=== PATIENT | female | born 1960 | race Caucasian/White ===

== ENCOUNTER → 2023-11-09 09:02 | Outpatient (REF) | payer OTHER, SELFPAY | LOC: HWRAD 09:02 | PROVIDERS: ATTENDING PHYSICIAN Family Medicine | DX: Z13.820 Encounter for screening for osteoporosis (principal) | CPT/HCPCS: 77080 ==

== ENCOUNTER 2023-12-23 07:20 | Day surgery (SDC) | payer OTHER, SELFPAY ==
[2023-12-23] VITALS (12 sets, daily range): BP systolic 110–147; BP diastolic 57–103; BMI 35.9
--- NOTE | 2023-12-23 03:28 | ED.GENMED ---
History of Present Illness
<VERNELL Esteves - Last Filed: 12/23/23 03:49>
General
Chief Complaint: Abdominal Pain
Source: patient and spouse
Exam Limitations: none
Time Seen by Provider: 12/23/23 03:09
History of Present Illness
History of Present Illness:
Pt is a 63 y/o F with complaints of RLQ pain x3 hrs ago that woke her up from sleep. The patient reported that she had complaints of epigastric pain that radiated to her RLQ. She described the pain as a burning sensation and rated the severity a
6/10. The RLQ pain also radiates to her back and right sided pelvis. She took an Ibuprofen with some relief. The RLQ pain is worsened with walking. There is associated nausea and increased urinary frequency. She also reports complaints of chills but
relates it to anxiety. She denies diarrhea, constipation, fever, vomiting, shortness of breath, SALDANA.
The pt has a PMHx of HTN x12 years on Lisinopril, HLD x12 years on Rosuvastatin and Fenofibrate, and GERD x1 yr on Pantoprazole. The pt is also taking Fosamax, Mounjaro, and Ozempic.
Past History
<VERNELL Esteves - Last Filed: 12/23/23 03:49>
Past History
ED Past Medical History: GERD, HTN and Hypercholesterolemia
ED Past Surgical History: None
Social History
Tobacco: Non-smoker
Alcohol: None
Drug: None
Personal:
Living: with family
Employment: Employed
Review of Systems
<VERNELL Esteves - Last Filed: 12/23/23 03:49>
Review of Systems
Allergies reviewed?: Yes
Constitutional: Reports no symptoms
EENT: Reports no symptoms
Respiratory: Reports no symptoms
Cardiac: Reports no symptoms
ABD/GI: Reports abdominal pain and nausea
: Reports frequency
Musculoskeletal: Reports no symptoms
Skin: Reports no symptoms
Neurological: Reports no symptoms
Endocrine: Reports no symptoms
Hematologic/Lymphatic: Reports no symptoms
Psychiatric: Reports no symptoms
Phy Exam
<VERNELL sEteves - Last Filed: 12/23/23 03:49>
General Physical Exam
General Presentation: well appearing and no apparent distress
General age: appears stated age
General Skin: warm and dry
General Habitus: normal
General Mental: alert
General Hydration: appears well hydrated
ENT Exam
ENT Exam: neck supple
Eye Exam
Eye Exam: PERRL, cornea clear and conjunctiva normal
Cardiovascular Exam
Cardiovascular Exam: regular rate/rhythm and normal peripheral pulses
Pulmonary Exam
Pulmonary Exam: lungs clear and no respiratory distress
Gastrointestinal Exam
Gastrointestinal Exam: normal bowel sounds, soft, no bruit and tender
Palpation: right lower quadrant: Moderate tenderness (Positive Rovsing's sign, positive Obturator sign)
Auscultation of Abdomen: normal
Neurological Exam
Neurological Exam: alert, oriented x3, no motor deficits, no sensory deficits and speech normal
Course
<VERNELL Esteves - Last Filed: 12/23/23 03:49>
Orders/Labs/Results
Orders:
Orders
12/23/23 03:30
CT Abd/Pel (IV only)-DH only Urgent
Comment:
Reason For Exam: rlq abd pain
12/23/23 03:53
Complete Blood Count/With Diff Urgent
Comprehensive Metabolic Panel Urgent
Lipase Urgent
PTT Urgent
Prothrombin Time Urgent
Troponin I Urgent
Urinalysis Reflex To Culture Urgent
Date Specimen was Collected: 12/23/23
Time Specimen was Collected: 03:46
Urine Microscopic Reflex Cult Urgent
Urine Culture Urgent
ISRRAEL Source: U
Specimen Description:
Date Specimen was Collected: 12/23/23
Time Specimen was Collected: 03:46
12/23/23 Breakfast
NPO
Allow oral meds: No
Allow clear liquids: Sips of Clears
12/23/23 06:14
Piperacillin/Tazo 4.5 Gram [Zosyn] 4.5 gram in 100 ml IV NOW
Abnormal Lab Results
12/23/23
03:53
WBC 13.2 H 10^3/uL
(4.8-10.8)
MCV 79.0 L fL
(81.0-99.0)
MPV 10.6 H fL
(7.4-10.4)
Absolute Neuts (auto) 10.2 H 10^3/uL
(1.4-6.5)
Absolute Monos (auto) 1.0 H 10^3/uL
(0.1-0.6)
Neutrophils % 77.4 H %
(42.2-75.2)
Lymphocytes % 13.2 L %
(20.5-51.1)
Chloride 109 H mmol/L
(98-107)
Carbon Dioxide 20 L mmol/L
(22-30)
BUN 18 H mg/dl
(7-17)
Glucose 104 H mg/dl
(70-99)
Leukocyte Esterase Rfl 1+ A
(Negative)
Urine WBC (Reflex) 11-15 A /HPF
(0-5)
Urine Bacteria (Reflex) Many A
(Negative)
12/23/23 03:53
12/23/23 03:53
Vital Signs
Initial and Last Documented VS:
Initial Vital Signs
Temp Pulse Resp BP Pulse Ox
98.4 F 88 18 144/103 97
12/23/23 03:00 12/23/23 03:00 12/23/23 03:00 12/23/23 03:00 12/23/23 03:00
Last Documented Vital Signs
Temp Pulse Resp BP Pulse Ox
98.4 F 74 20 115/65 99
12/23/23 03:00 12/23/23 05:15 12/23/23 05:15 12/23/23 04:00 12/23/23 05:02
<Isacc Junior, - Last Filed: 12/23/23 06:15>
Orders/Labs/Results
Orders:
Orders
12/23/23 03:30
CT Abd/Pel (IV only)-DH only Urgent
Comment:
Reason For Exam: rlq abd pain
12/23/23 03:53
Complete Blood Count/With Diff Urgent
Comprehensive Metabolic Panel Urgent
Lipase Urgent
PTT Urgent
Prothrombin Time Urgent
Troponin I Urgent
Urinalysis Reflex To Culture Urgent
Date Specimen was Collected: 12/23/23
Time Specimen was Collected: 03:46
Urine Microscopic Reflex Cult Urgent
Urine Culture Urgent
ISRRAEL Source: U
Specimen Description:
Date Specimen was Collected: 12/23/23
Time Specimen was Collected: 03:46
12/23/23 Breakfast
NPO
Allow oral meds: No
Allow clear liquids: Sips of Clears
12/23/23 06:14
Piperacillin/Tazo 4.5 Gram [Zosyn] 4.5 gram in 100 ml IV NOW
Abnormal Lab Results
12/23/23
03:53
WBC 13.2 H 10^3/uL
(4.8-10.8)
MCV 79.0 L fL
(81.0-99.0)
MPV 10.6 H fL
(7.4-10.4)
Absolute Neuts (auto) 10.2 H 10^3/uL
(1.4-6.5)
Absolute Monos (auto) 1.0 H 10^3/uL
(0.1-0.6)
Neutrophils % 77.4 H %
(42.2-75.2)
Lymphocytes % 13.2 L %
(20.5-51.1)
Chloride 109 H mmol/L
(98-107)
Carbon Dioxide 20 L mmol/L
(22-30)
BUN 18 H mg/dl
(7-17)
Glucose 104 H mg/dl
(70-99)
Leukocyte Esterase Rfl 1+ A
(Negative)
Urine WBC (Reflex) 11-15 A /HPF
(0-5)
Urine Bacteria (Reflex) Many A
(Negative)
12/23/23 03:53
12/23/23 03:53
Vital Signs
Initial and Last Documented VS:
Initial Vital Signs
Temp Pulse Resp BP Pulse Ox
98.4 F 88 18 144/103 97
12/23/23 03:00 12/23/23 03:00 12/23/23 03:00 12/23/23 03:00 12/23/23 03:00
Last Documented Vital Signs
Temp Pulse Resp BP Pulse Ox
98.4 F 74 20 115/65 99
12/23/23 03:00 12/23/23 05:15 12/23/23 05:15 12/23/23 04:00 12/23/23 05:02
<VERNELL Esteves - Last Filed: 12/23/23 03:49>
MDM/Problems Addressed
Differential Diagnosis Includes:
Appendicitis
<VERNELL Esteves - Last Filed: 12/23/23 03:49>
*Critical Care Note
Total Time (30-74mins, 75-104mins- exclusive of procedures): Not Applicable
<Isacc Junior DO - Last Filed: 12/23/23 06:15>
Update Note
Update Note:
Additional Information (per [facility]):
CT abdomen and pelvis with IV contrast
IMPRESSION:
Acute appendicitis without perforation. Surgical consultation is recommended.
Appendix located in the right lower quadrant, series 201, image 61 for example. Diameter 8 mm. No fluid collection or free air.
Hepatic steatosis. No cholecystitis or pancreatitis. No obstructing renal stone. Abdominal aorta is of normal caliber. Bladder wall thickening; correlate with urinalysis.
Finalized at 5:23 AM EST
Spoke with Dr. Quevedo who agreed to accept patient on his service. That he would, nurse practitioner aware. Patient started on Zosyn and made NPO.
ED Attending Note
<VERNELL Esteves - Last Filed: 12/23/23 03:49>
-
Portions of this chart may have been created with voice recognition software.� Occasional wrong word or��sound alike� substitutions may have occurred due to the inherent limitations of voice recognition software.
<Isacc Junior DO - Last Filed: 12/23/23 06:15>
ED Attending Note
Patient seen and examined by attending physician: Yes
I performed the substantive portion of visit, reviewed & personally made and approve the management plan that is documented in note by myself or NIDIA.: Yes
ED Attending Note:
Pleasant 63-year-old female presents with right lower quadrant abdominal pain that began approxi-3 hours prior to arrival. She states that the pain awakened her from sleep patient states that she took ibuprofen with minimal relief. Patient states
that jarring motion exacerbates her right lower quadrant abdominal pain. She does have nausea without vomiting patient states that the pain begins in her right lower quadrant and radiates down to her right pelvis and back. Patient was seen in
conjunction with the PA student. I have reviewed and agree with the history and treatment plan presented. On my independent physical exam, patient is awake, alert, and oriented x3
Discharge Plan
Departure
Patient Disposition: Admit
Date of Disposition: 12/23/23
Time of Disposition: 06:03
Admit to: Med/Surg
Presentation/result/management discussed w/ accepting /DO: Sae
Condition: Fair
Discharge Problem:
Acute appendicitis
Prescriptions:
No Action
ondansetron [Zofran ODT] 8 MG tablet,disintegrating
8 mg PO TID PRN (Reason: nausea/vomiting) Qty: 20 0RF
meclizine 25 MG tablet
25 mg PO Q8HPRN PRN (Reason: vertigo) Qty: 30 0RF
Referrals:
Theodore Uriarte DO [Family Provider] -
Interventions
Interventions:
*Risk Screen - Suicide Last Done: 12/23/23 03:00
*General Assessment Last Done: 12/23/23 03:00
*Neglect/Abuse Screening Last Done: 12/23/23 03:00
ED- Fall Risk Assessment Last Done: 12/23/23 03:00
*ED COVID-19 Vaccine History Last Done: 12/23/23 03:00
TN-Gbpngz-Iptejasgis Assessment Last Done: 12/23/23 03:40
Discharge Date and Time
Print Language: TRISTANIAN
[2023-12-23 04:11] LABS: % Basophils 0.6 % (0-2); % Eosinophils 1.1 % (0-6); % Immature Granulocytes 0.3 % (0-0.5); % Lymphocytes 13.2 % (20.5-51.1); % Monocytes 7.4 % (1.7-9.3); % Neutrophils 77.4 % (42.2-75.2); Absolute Basophils 0.1 10^3/uL (0-0.2); Absolute Eosinophils 0.2 10^3/uL (0-0.7); Absolute Lymphocytes 1.7 10^3/uL (1.2-3.4); Absolute Neutrophils 10.2 10^3/uL (1.4-6.5); Hematocrit 37.3 % (37.0-47.0); Hemoglobin 12.9 g/dL (12.0-16.0); Mean Corp Hgb Conc. 34.6 g/dL (33.0-37.0); Mean Corpuscular Hgb 27.3 pg (27.0-31.0); Mean Platelet Volume 10.6 fL (7.4-10.4); Nucleated Red Blood Cells % 0 %; Platelet Count 223 10^3/uL (130-400); Red Blood Cell Count 4.72 10^6/uL (4.20-5.40); Red Cell Dist. Width 13.8 % (11.5-14.5); White Blood Cell Count 13.2 10^3/uL (4.8-10.8)
[2023-12-23 04:15] LABS: Urine Albumin Negative (Neg - Trace); Urine Bilirubin Negative (Negative); Urine Character Clear (Clear); Urine Color Yellow; Urine Glucose Negative (Negative); Urine Ketone Negative (Negative); Urine Leukocyte 1+ (Negative); Urine Nitrite Negative (Negative); Urine Occult Blood Negative (Negative); Urine Urobilinogen Negative (Neg - 1+)
[2023-12-23 04:19] LABS: INR 1.02; PT 13.4 Sec (11.4-14.6)
[2023-12-23 04:20] LABS: APTT 31.8 Sec (23.4-35.0)
[2023-12-23 04:33] LABS: ALT (SGPT) 33 U/L (0-35); AST (SGOT) 31 U/L (14-36); Albumin 4.3 g/dl (3.5-5.0); Alkaline Phosphatase 72 U/L (38-126); Blood Urea Nitrogen 18 mg/dl (7-17); Calcium 9.6 mg/dl (8.4-10.2); Carbon Dioxide 20 mmol/L (22-30); Chloride 109 mmol/L (98-107); Estimated Creatinine Clearance 93 ml/min; Glucose 104 mg/dl (70-99); Lipase 163 U/L (23-300); Potassium 3.9 mmol/L (3.5-5.1); Sodium 142 mmol/L (135-145); Total Bilirubin 1.1 mg/dl (0.2-1.3); Total Protein 6.5 g/dl (6.3-8.2); eGFR > 60.00
[2023-12-23 04:43] LABS: Troponin I < 0.012 ng/ml
[2023-12-23 05:03] LABS: Urine Squamous Cell >30 /LPF (Few); Urine Urothelial Cell >30 /LPF (FEW)
[2023-12-23 05:09] LABS: Urine Bacteria Many (Negative)
[2023-12-23 05:10] LABS: Urine Red Blood Cell 0-2 /HPF (0-2)
[2023-12-23] MEDS: ZOSYN 100 IV (06:49)
--- NOTE | 2023-12-23 07:05 | HPS.HSE ---
Family Physician
-
Family Physician: Theodore Uriarte,
Chief Complaint
-
abd pain
History of Present Illness
Pt is a 63 y/o F with complaints of RLQ pain that woke her up from sleep around midnight. The patient reported that she had complaints of epigastric pain that radiated to her RLQ. She described the pain as a burning sensation and rated the severity
a 6/10. The RLQ pain also radiates to her back and right sided pelvis. She took an Ibuprofen with some relief. The RLQ pain is worsened with walking. There is associated nausea and increased urinary frequency. She also reports complaints of chills
but relates it to anxiety. She denies diarrhea, constipation, fever, vomiting, shortness of breath, SALDANA.
The pt has a PMHx of HTN x12 years on Lisinopril, HLD x12 years on Rosuvastatin and Fenofibrate, and GERD x1 yr on Pantoprazole. The pt is also taking Fosamax, Mounjaro (for weight loss)
ED treatments:
zosyn iv
WBC 13.2
[address] abd consistent with acute appendicitis
Medical History
Past Medical History
Past Medical History: Reports GERD, HTN, Hypercholesterolemia (and high triglycerides) and Other (osteoporosis)
Past Surgical History: Reports Other (wisdom teeth, tonsils as child)
Social History
Tobacco: Non-smoker
Alcohol: None
Drug: None
Personal:
Living: With Family
Family History
Family History: Not pertinent
Allergies / Home Medications
Allergies reflects when Allergies were last updated in [facility].
Home Medications with original date entered in [facility]
Allergy/Medication List:
Allergies
Allergy/AdvReac Type Severity Reaction Status Date / Time
No Known Allergies Allergy Verified 12/23/23 02:58
Home Medications
Fosamax 70 mg PO WEEKLY 12/23/23
Mounjaro 5 mg SC WEEKLY 12/23/23
fenofibrate 48 mg PO DAILY 12/23/23
lisinopril 10 mg tablet 10 mg PO DAILY 12/23/23
pantoprazole 40 mg tablet,delayed release 40 mg PO DAILY 12/23/23
rosuvastatin 10 mg tablet 10 mg PO DAILY 12/23/23
Review of Systems
-
History Source: Patient
A 12 point ROS was completed and negative except as noted: Yes
Constitutional: Reports No Symptoms
EENT: Reports No Symptoms
Respiratory: Reports No Symptoms
Cardiac: Reports No Symptoms
Abdomen/GI: Reports Abdominal Pain (09/18) and Nausea
: Reports No Symptoms
Musculoskeletal: Reports No Symptoms
Skin: Reports No Symptoms
Neurological: Reports No Symptoms
Endocrine: Reports No Symptoms
Hematologic/Lymphatic: Reports No Symptoms
Psych: Reports No Symptoms
Physical Exam
Vital Signs
Vital Signs
Temp Pulse Resp BP Pulse Ox
98.4 F 75 15 115/65 95
12/23/23 03:00 12/23/23 06:45 12/23/23 06:45 12/23/23 04:00 12/23/23 06:45
Physical Exam
General: Well Developed, No Apparent Distress and Comfortable
HEENT: NormoCephalic, Anicteric and Moist mucous membranes
Respiratory: Clear and Non Labored Respirations
Cardiac: S1/S2 and Regular Rhythm
Breast: Deferred by me
GI: Soft, Tender (RLQ ) and Distended (mild)
Rectal: Deferred by Provider
Genito-urinary: Deferred by me
Musculoskeletal: No Clubbing and No Cyanosis
Skin: Warm and Dry
Neuro: Awake, Alert, Oriented, AO x 3 and No Motor Deficits
Psych: Calm
Laboratory Results
-
12/23/23 03:53
12/23/23 03:53
Laboratory Results
PT 13.4 Sec (11.4-14.6) 12/23/23 03:53
INR 1.02 12/23/23 03:53
APTT 31.8 Sec (23.4-35.0) 12/23/23 03:53
Total Bilirubin 1.1 mg/dl (0.2-1.3) 12/23/23 03:53
AST 31 U/L (14-36) 12/23/23 03:53
ALT 33 U/L (0-35) 12/23/23 03:53
Alkaline Phosphatase 72 U/L (38-126) 12/23/23 03:53
Troponin I < 0.012 ng/ml 12/23/23 03:53
Lipase 163 U/L (23-300) 12/23/23 03:53
Data Reviewed
-
CT Scan: Report Reviewed by me and Discussed with Physician
Lab Data: Discussed with Physician
Impression/Plan
-
IMPRESSION:
acute uncomplicated appendicitis
PLAN:
Admit to service of Dr Quevedo
med surg obs
acute uncomplicated appendicitis:
-NPO for OR sometime today
-IvF: normosol @100
-Pain control: tylenol, dilaudid
- cont zosyn
HTN:
-cont lisinopril post op
HLD:
-cont rosuvastatin and fenofibrate
GERD:
-cont protonix
Osteoporosis:
-can resume at dc
obesity:
-can cont mounjaro at dc
SCD for DVT proph
Full code
--- NOTE | 2023-12-23 08:45 | PTCARENOTE ---
Pt received from the ED via stretcher. Transport was w/o incident. Pt is AAOx3, HRR, lungs are clear, resp. easy, pulse ox 98%RA. Pt denies nausea and admits to mild discomfort to right abd. Pt instructed to notify nursing if pain med is needed.
VSS, Pt is afebrile. Pt instructed on plan of care and what to expect pre and post operatively, as a lap appendectomy scheduled for this afternoon. Pt and pt' verbalized understanding of all instructions. Call trevino is within reach.
--- NOTE | 2023-12-23 10:48 | W.SUR.PREOP ---
Pre-Operative Surgical Note
-
I have examined this patient prior to the performance of the scheduled procedure.
The patient's condition is unchanged from the time of the current History and
Physical and the patient is able to undergo the scheduled procedure.
--- NOTE | 2023-12-23 10:48 | W.PN.SURGUPD ---
Surgical Update
Surgical Update
Patient is a 63 yo F p/w RLQ abdominal pain. Symptoms began yesterday evening at midnight. [place] well prior to this. Associated nausea, but no vomiting. No fevers. Fluctuations in GI function. Recent colonoscopy last year. No chronic history
of GI illnesses. Continues to have RLQ abdominal pain.
Gen: NAD
Abd: soft, tender to palpation in RLQ, ND (obese), non-peritoneal
Workup including clinical history and labs consistent with a diagnosis of acute appendicitis. CT imaging and labs were reviewed. Options for management including medical management with antibiotics versus surgical management with appendectomy were
considered and discussed. Pros and cons of both approaches was discussed. Specifically, we discussed failure of medical management and future episodes of appendicitis versus surgical risks.
Plan for laparoscopic appendectomy. The procedure itself, as well as the risks, benefits, and alternatives was discussed. Specifically, we discussed the risks of bleeding, infection, injury to surrounding structures (bowel, bladder), staple line
leak, need for open procedure. Typical postprocedure recovery was discussed. All questions answered. Consent signed.
-- Laparoscopic appendectomy
-- NPO, IVF
-- Antibiotics: Zosyn
-- Pain control: Tylenol and IV Dilaudid as needed
[2023-12-23] MEDS: NORMOSOL-R/PLASMALYTE-A 1000 IV (11:10)
[2023-12-23] MEDS: ZOSYN 50 IV ×3 (11:21→23:20)
--- NOTE | 2023-12-23 14:02 | W.IMMPOSTOP ---
Addendum entered and electronically signed by Ramsey Johnson MD 12/23/23 14:10:
[facility]#[id number]
Original Note:
Surgical Immed Post Op Note
-
Primary Surgeon: Alex
Assisting Surgeon: ALBERTO Helms
Pre-op Diagnosis: Acute appendicitis
Post-op Diagnosis: Acute appendicitis
Procedure Performed: Laparoscopic appendectomy
Anesthesia Type: General
Specimen / Cultures:
1. Appendix
Estimated Blood Loss: 7 cc
Complications: None
Operative Findings:
1. Acutely inflamed and dilated appendix, no evidence of perforation
2. Mesentery taken with [employer], base with palacio load stapler, clip to staple line for ooze
--- NOTE | 2023-12-23 15:15 | PTCARENOTE ---
Pt received from the PACU via bed. Transport was w/o incident. Pt is drowsy, and easily arousable. Pt denies nausea or pain at present. Pt's VSS, Pt is afebrile. Pt's abd with 3 lap sites well approximated w/ surgi glue. No drainage noted. Pt
instructed on plan of care. Pt and Pt's verbalized understanding of instructions. Call trevino is within reach.
[2023-12-23] MEDS: ZOFRAN 4 MG IV (17:50)
[2023-12-23] MEDS: TYLENOL 650 MG PO (22:08)
[2023-12-24] MEDS: NORMOSOL-R/PLASMALYTE-A 1000 IV (00:56)
[2023-12-24 01:27] VITALS: BP 145/81
[2023-12-24 05:15] VITALS: BP 131/80
[2023-12-24] MEDS: ZOSYN 50 IV (05:45)
[2023-12-24 07:09] VITALS: BP 124/73
--- NOTE | 2023-12-24 09:02 | W.PN.GS2 ---
Today's Communication / Plan
-
Dispo planning
Assessment / Plan
-
63 yo female presenting with acute appendicitis now POD #1 lap appi
Tolerating diet
AFVSS
Progressing well post operatively
--Continue regular diet
--Reviewed d/c instructions
--Analgesics prn
--D/c IVF
--D/C to home
Subjective Data
-
Date of Service: December 24, 2023
Patient seen and examined at bedside with Dr. Johnson. Denies n/v. Tolerating diet. Pain is minimal but predominantly to umbilical incision.
Objective Data
-
Intake and Output
12/23/23 12/24/23 12/25/23
06:59 06:59 06:59
Intake Total 1130 / 1130
Balance 1130 / 1130
Intake:
Oral fluids 1080 / 1080
IV fluids (Total) 50 / 50
Normosol 50 / 50
Other:
Number of approximated MODERATE 3
amounts of urine
Vital Signs
Temp Pulse Resp BP Pulse Ox
98.2 F 72 16 124/73 97
12/24/23 07:09 12/24/23 07:09 12/24/23 07:09 12/24/23 07:09 12/24/23 07:09
Lab Results
12/23/23 03:53
12/23/23 03:53
Calcium 9.6 mg/dl (8.4-10.2) 12/23/23 03:53
Total Bilirubin 1.1 mg/dl (0.2-1.3) 12/23/23 03:53
AST 31 U/L (14-36) 12/23/23 03:53
ALT 33 U/L (0-35) 12/23/23 03:53
Alkaline Phosphatase 72 U/L (38-126) 12/23/23 03:53
Total Protein 6.5 g/dl (6.3-8.2) 12/23/23 03:53
Albumin 4.3 g/dl (3.5-5.0) 12/23/23 03:53
Physical Exam
-
NAD
ABD soft, ND, minimal incisional tenderness
Incisions well approximated with intact glue, mild ecchymosis to periumbilical incision
--- NOTE | 2023-12-24 09:04 | W.DS.TRANS ---
DC Summary - Supervising Nurse
-
Discharge Instructions:
Discharge Diagnosis/Procedures Appendicitis status post laparoscopic
appendectomy
Diet Regular
Activity No strenuous activity
Additional Activity Do not lift over 15 lbs for the next 2 weeks
Driving Restrictions No driving for 24 hours
Bathing Restrictions OK to Shower
Wound Care Avoid picking or scrubbing off glue over
incisions. It will flake off on its own in 2-3
weeks. Ok to shower and wash your incisions
gently with soap and water starting 24 hours
after surgery.
Instructions:
Stand-Alone Forms:
Changes to Home Medications: No
Discharge Medications:
DC Medications w/original date entered in [employer]
Fosamax 70 mg PO WEEKLY 12/23/23
Mounjaro 5 mg SC WEEKLY 12/23/23
acetaminophen 325 mg tablet 650 mg (2 x 325 mg) PO Q4HPRN PRN mild pain #1 tab 12/23/23
fenofibrate 48 mg PO DAILY 12/23/23
ibuprofen 200 mg tablet 400 - 600 mg (2 - 3 x 200 mg) PO Q6HPRN PRN moderate pain #1 tab 12/23/23
lisinopril 10 mg tablet 10 mg PO DAILY 12/23/23
oxycodone 5 mg tablet 5 mg PO Q4HPRN PRN breakthrough/severe pain #10 tabs 12/23/23
pantoprazole 40 mg tablet,delayed release 40 mg PO DAILY 12/23/23
rosuvastatin 10 mg tablet 10 mg PO DAILY 12/23/23
Home Medication Changes
Pending Results: No
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
== END 2023-12-24 10:36 | disposition home or self-care (01) ==
LOC: SDS 07:20
PROVIDERS: ATTENDING PHYSICIAN Surgery; EMERGENCY PHYSICIAN Student in an Organized Health Care Education/Training Program; FAMILY PHYSICIAN Family Medicine
DX: K35.80 Unspecified acute appendicitis (principal)
CPT/HCPCS: 44970; 88304; 74177; 80053; 81003; 81015; 83690; 84484; 85025; 85610; 85730; 87086; 96365; 99285; C1776; G0378; Q9967

== ENCOUNTER → 2024-02-09 08:01 | Outpatient (REF) | payer OTHER, SELFPAY | LOC: WDC 08:01 | PROVIDERS: ATTENDING PHYSICIAN Obstetrics & Gynecology; FAMILY PHYSICIAN Family Medicine | DX: Z12.31 Encounter for screening mammogram for malignant neoplasm of breast (principal) | CPT/HCPCS: 77063; 77067 ==

== ENCOUNTER → 2024-02-10 08:34 | Outpatient (REF) | payer OTHER, SELFPAY | LOC: HWRAD 08:34 | PROVIDERS: ATTENDING PHYSICIAN Physician Assistant; FAMILY PHYSICIAN Family Medicine | DX: M54.50 Low back pain, unspecified (principal); M54.9 Dorsalgia, unspecified | CPT/HCPCS: 72072; 72100 ==

== ENCOUNTER → 2024-02-17 09:17 | Outpatient (REF) | payer OTHER, SELFPAY | LOC: WDC 09:17 | PROVIDERS: ATTENDING PHYSICIAN Obstetrics & Gynecology; FAMILY PHYSICIAN Family Medicine | DX: R92.8 Other abnormal and inconclusive findings on diagnostic imaging of breast (principal) | CPT/HCPCS: 76642 ==

== ENCOUNTER → 2024-02-21 08:13 | Outpatient (REF) | payer OTHER, SELFPAY ==
--- NOTE | 2024-02-21 13:29 | OID.BR.INTR ---
[facility] Breast Navigator - Initial
- -
Date of Contact: 02/21/24
Met with patient. Patient given written information on navigator services available at [facility]. Will follow up as needed per protocol.
== END ==
LOC: WDC 08:13
PROVIDERS: ATTENDING PHYSICIAN Obstetrics & Gynecology; FAMILY PHYSICIAN Family Medicine
DX: N63.22 Unspecified lump in the left breast, upper inner quadrant (principal)
CPT/HCPCS: 88305; 19083; 88341; 88342; 88360; A4648

== ENCOUNTER → 2024-03-15 11:33 | Outpatient (REF) | payer OTHER, SELFPAY | LOC: WDC 11:33 | PROVIDERS: ATTENDING PHYSICIAN Surgery | DX: C50.412 Malignant neoplasm of upper-outer quadrant of left female breast (principal) | CPT/HCPCS: 19281; 38792; 76942; A4648; A9541 ==

== ENCOUNTER 2024-03-16 06:18 | Day surgery (SDC) | payer OTHER, SELFPAY ==
[2024-03-02 10:40] VITALS: BMI 30.6
[2024-03-02 10:45] LABS: Hematocrit 42.8 % (37.0-47.0); Mean Corp Hgb Conc. 32.7 g/dL (33.0-37.0); Mean Corpuscular Hgb 27.5 pg (27.0-31.0); Mean Corpuscular Volume 84.1 fL (81.0-99.0); Mean Platelet Volume 10.1 fL (7.4-10.4); Platelet Count 254 10^3/uL (130-400); Red Blood Cell Count 5.09 10^6/uL (4.20-5.40); Red Cell Dist. Width 13.2 % (11.5-14.5); White Blood Cell Count 6.6 10^3/uL (4.8-10.8)
[2024-03-02 11:22] LABS: ALT (SGPT) 34 U/L (0-35); AST (SGOT) 28 U/L (14-36); Albumin 4.7 g/dl (3.5-5.0); Alkaline Phosphatase 49 U/L (38-126); Blood Urea Nitrogen 19 mg/dl (7-17); Calcium 9.5 mg/dl (8.4-10.2); Carbon Dioxide 23 mmol/L (22-30); Chloride 106 mmol/L (98-107); Estimated Creatinine Clearance 83 ml/min; Glucose 79 mg/dl (70-99); Potassium 4.1 mmol/L (3.5-5.1); Sodium 144 mmol/L (135-145); Total Bilirubin 1.1 mg/dl (0.2-1.3); Total Protein 7.1 g/dl (6.3-8.2); eGFR > 60.00
[2024-03-02 11:38] LABS: Vitamin D, 25-OH*** 86.7 ng/mL (30-80)
[2024-03-16] VITALS (7 sets, daily range): BP systolic 110–140; BP diastolic 76–91; BMI 30.6
[2024-03-16] MEDS: TYLENOL 1000 MG PO (08:03)
[2024-03-16] MEDS: LOVENOX 40 MG SC (08:04)
[2024-03-16] MEDS: ROXICODONE 5 MG PO (11:42)
== END 2024-03-16 12:00 | disposition home or self-care (01) ==
LOC: SDS 06:18
PROVIDERS: ATTENDING PHYSICIAN Surgery; FAMILY PHYSICIAN Family Medicine; OTHER PHYSICIAN Obstetrics & Gynecology
DX: C50.912 Malignant neoplasm of unspecified site of left female breast (principal)
CPT/HCPCS: 38525; 19301; 14001; 88305; 88307; 88332; 36415; 76098; 80053; 82306; 84134; 85027; 88331; 88341; 88342; 93005; A4648

== ENCOUNTER → 2024-04-21 07:02 | Outpatient (REF) | payer OTHER, SELFPAY | LOC: RCS 07:02 | PROVIDERS: ATTENDING PHYSICIAN Internal Medicine Hematology & Oncology; FAMILY PHYSICIAN Family Medicine | DX: C50.412 Malignant neoplasm of upper-outer quadrant of left female breast (principal) | CPT/HCPCS: 93306; 93356 ==

== ENCOUNTER 2024-04-24 06:23 | Day surgery (SDC) | payer OTHER, SELFPAY ==
[2024-04-24 06:51] VITALS: BP 117/75
[2024-04-24] MEDS: NSS 1000 IV (06:55)
[2024-04-24 06:57] VITALS: BMI 32.3
[2024-04-24 06:59] VITALS: BMI 32.3
[2024-04-24 08:35] VITALS: BP 129/86
[2024-04-24 08:45] VITALS: BP 122/77
[2024-04-24 09:00] VITALS: BP 132/92
[2024-04-24 09:15] VITALS: BP 141/88
== END 2024-04-24 09:40 | disposition home or self-care (01) ==
LOC: SDS 06:23
PROVIDERS: ATTENDING PHYSICIAN Surgery
PROC: 0JH63WZ Insertion of Totally Implantable Vascular Access Device into Chest Subcutaneous Tissue and Fascia, Percutaneous Approach (ICD-10-PCS; 2024-04-24)
DX: C50.912 Malignant neoplasm of unspecified site of left female breast (principal)
CPT/HCPCS: 36561; 71045; 76000; C1788

== ENCOUNTER 2024-07-04 13:51 | Outpatient (RCR) | payer OTHER, SELFPAY | END 2024-07-04 23:59 | disposition home or self-care (01) | LOC: RPT 13:51 | PROVIDERS: ATTENDING PHYSICIAN Internal Medicine Cardiovascular Disease; FAMILY PHYSICIAN Family Medicine | DX: C50.412 Malignant neoplasm of upper-outer quadrant of left female breast (principal); I97.2 Postmastectomy lymphedema syndrome; R53.0 Neoplastic (malignant) related fatigue; L90.5 Scar conditions and fibrosis of skin; M81.0 Age-related osteoporosis without current pathological fracture; Z73.6 Limitation of activities due to disability | CPT/HCPCS: 97110; 97112; 97140; 97163; 97530 ==

== ENCOUNTER 2024-07-24 14:51 | Outpatient (RCR) | payer OTHER, SELFPAY | END 2024-07-24 23:59 | disposition home or self-care (01) | LOC: RPT 14:51 | PROVIDERS: ATTENDING PHYSICIAN Internal Medicine Cardiovascular Disease; FAMILY PHYSICIAN Family Medicine | DX: C50.412 Malignant neoplasm of upper-outer quadrant of left female breast (principal); I97.2 Postmastectomy lymphedema syndrome; R53.0 Neoplastic (malignant) related fatigue; L90.5 Scar conditions and fibrosis of skin; M81.0 Age-related osteoporosis without current pathological fracture; Z73.6 Limitation of activities due to disability | CPT/HCPCS: 97110; 97112; 97530 ==

== ENCOUNTER → 2024-08-20 08:21 | Outpatient (REF) | payer OTHER, SELFPAY | LOC: RCS 08:21 | PROVIDERS: ATTENDING PHYSICIAN Internal Medicine Cardiovascular Disease | DX: Z85.3 Personal history of malignant neoplasm of breast (principal) | CPT/HCPCS: 93306; 93356 ==

== ENCOUNTER 2024-09-05 12:53 | Outpatient (RCR) | payer OTHER, SELFPAY | END 2024-09-05 23:59 | disposition home or self-care (01) | LOC: RPT 12:53 | PROVIDERS: ATTENDING PHYSICIAN Internal Medicine Cardiovascular Disease; FAMILY PHYSICIAN Family Medicine | DX: I97.2 Postmastectomy lymphedema syndrome (principal); C50.412 Malignant neoplasm of upper-outer quadrant of left female breast; R53.0 Neoplastic (malignant) related fatigue; L90.5 Scar conditions and fibrosis of skin; M81.0 Age-related osteoporosis without current pathological fracture; Z73.6 Limitation of activities due to disability | CPT/HCPCS: 97110; 97112; 97530 ==

== ENCOUNTER 2024-10-03 14:50 | Outpatient (RCR) | payer OTHER, SELFPAY | END 2024-10-03 23:59 | disposition home or self-care (01) | LOC: RPT 14:50 | PROVIDERS: ATTENDING PHYSICIAN Internal Medicine Cardiovascular Disease; FAMILY PHYSICIAN Family Medicine | DX: I97.2 Postmastectomy lymphedema syndrome (principal); C50.412 Malignant neoplasm of upper-outer quadrant of left female breast; R53.0 Neoplastic (malignant) related fatigue; L90.5 Scar conditions and fibrosis of skin; M81.0 Age-related osteoporosis without current pathological fracture; Z73.6 Limitation of activities due to disability | CPT/HCPCS: 97110; 97112; 97530 ==

== ENCOUNTER 2024-10-24 14:47 | Outpatient (RCR) | payer OTHER, SELFPAY | END 2024-10-24 23:59 | disposition home or self-care (01) | LOC: RPT 14:47 | PROVIDERS: ATTENDING PHYSICIAN Internal Medicine Cardiovascular Disease; FAMILY PHYSICIAN Family Medicine | DX: I97.2 Postmastectomy lymphedema syndrome (principal); C50.412 Malignant neoplasm of upper-outer quadrant of left female breast; R53.0 Neoplastic (malignant) related fatigue; L90.5 Scar conditions and fibrosis of skin; M81.0 Age-related osteoporosis without current pathological fracture; Z73.6 Limitation of activities due to disability | CPT/HCPCS: 97110; 97112; 97530 ==

== ENCOUNTER → 2024-11-20 08:08 | Outpatient (REF) | payer OTHER, SELFPAY | LOC: RCS 08:08 | PROVIDERS: ATTENDING PHYSICIAN Internal Medicine Cardiovascular Disease; FAMILY PHYSICIAN Family Medicine | DX: C50.412 Malignant neoplasm of upper-outer quadrant of left female breast (principal); I10 Essential (primary) hypertension; I34.0 Nonrheumatic mitral (valve) insufficiency; I36.1 Nonrheumatic tricuspid (valve) insufficiency | CPT/HCPCS: 93306; 93356 ==

== ENCOUNTER 2024-11-21 13:17 | Outpatient (RCR) | payer OTHER, SELFPAY | END 2024-11-21 23:59 | disposition home or self-care (01) | LOC: RPT 13:17 | PROVIDERS: ATTENDING PHYSICIAN Internal Medicine Cardiovascular Disease; FAMILY PHYSICIAN Family Medicine | DX: I97.2 Postmastectomy lymphedema syndrome (principal); C50.412 Malignant neoplasm of upper-outer quadrant of left female breast; R53.0 Neoplastic (malignant) related fatigue; L90.5 Scar conditions and fibrosis of skin; M81.0 Age-related osteoporosis without current pathological fracture; Z73.6 Limitation of activities due to disability | CPT/HCPCS: 97110; 97112 ==

== ENCOUNTER 2024-12-12 12:52 | Outpatient (RCR) | payer OTHER, SELFPAY | END 2024-12-12 23:59 | disposition home or self-care (01) | LOC: RPT 12:52 | PROVIDERS: ATTENDING PHYSICIAN Internal Medicine Cardiovascular Disease; FAMILY PHYSICIAN Family Medicine | DX: I97.2 Postmastectomy lymphedema syndrome (principal); C50.412 Malignant neoplasm of upper-outer quadrant of left female breast; R53.0 Neoplastic (malignant) related fatigue; L90.5 Scar conditions and fibrosis of skin; M81.0 Age-related osteoporosis without current pathological fracture; Z73.6 Limitation of activities due to disability | CPT/HCPCS: 97110; 97140; 97530 ==

== ENCOUNTER → 2025-02-25 08:04 | Outpatient (REF) | payer OTHER, SELFPAY | LOC: RCS 08:04 | PROVIDERS: ATTENDING PHYSICIAN Internal Medicine Cardiovascular Disease; FAMILY PHYSICIAN Family Medicine | DX: C50.412 Malignant neoplasm of upper-outer quadrant of left female breast (principal); I10 Essential (primary) hypertension; I34.0 Nonrheumatic mitral (valve) insufficiency; I36.1 Nonrheumatic tricuspid (valve) insufficiency | CPT/HCPCS: 93306; 93356 ==

== ENCOUNTER → 2025-02-25 17:04 | Outpatient (REF) | payer OTHER, SELFPAY | LOC: WDC 17:04 | PROVIDERS: ATTENDING PHYSICIAN Family Medicine Geriatric Medicine; FAMILY PHYSICIAN Family Medicine | DX: Z12.31 Encounter for screening mammogram for malignant neoplasm of breast (principal) | CPT/HCPCS: 77063; 77067 ==

== ENCOUNTER → 2025-03-14 13:32 | Outpatient (REF) | payer OTHER, SELFPAY | LOC: WDC 13:32 | PROVIDERS: ATTENDING PHYSICIAN Surgery; FAMILY PHYSICIAN Family Medicine | DX: R92.30 Dense breasts, unspecified (principal) | CPT/HCPCS: 76641 ==